=== PATIENT | male | born 1930 | race Caucasian/White ===

== ENCOUNTER 2017-02-17 15:43 | Emergency (ER) | payer MEDICARE ==
[2017-02-17] MEDS ORDERED: BACTRIM DS1 TAB PO (16:41)
[2017-02-17 16:46] VITALS: BP 125/71
[2017-02-17] MEDS ORDERED: EC ASPIRIN325 MG PO (16:59)
[2017-02-17] MEDS ORDERED: FLUTICASONE50 MCG (16:59)
[2017-02-17] MEDS ORDERED: LOMOTIL2.5 MG PO (17:00)
[2017-02-17] MEDS ORDERED: ALLEGRA180 MG PO (17:00)
[2017-02-17] MEDS ORDERED: OMEPRAZOLE10 MG PO (17:01)
[2017-02-17] MEDS ORDERED: LUPRON DEPOT11.25 MG IM (17:02)
[2017-02-17] MEDS ORDERED: BICALUTAMIDE50 MG PO (17:03)
[2017-02-17] MEDS ORDERED: PRAVASTATIN SOD20 MG PO (17:03)
[2017-02-17] MEDS ORDERED: LEVOTHYROXIN50 MCG PO (17:03)
[2017-02-17] MEDS ORDERED: LEXAPRO10 MG PO (17:04)
== END 2017-02-17 16:52 | disposition home or self-care (01) ==
LOC: ED 15:43
DX: J02.9 Acute pharyngitis, unspecified (principal); R59.0 Localized enlarged lymph nodes; R91.1 Solitary pulmonary nodule

== ENCOUNTER 2017-12-16 10:56 | Day surgery (SDC) | payer MEDICARE ==
[~2017-12-16] VITALS: Ht 170.2 cm; Wt 70.8 kg
[~2017-12-16 10:56] MED LIST: ALLEGRA180 MG PO; ASPIRIN LOW DOS81 M1 PO; BACTRIM DS1 TAB PO; BICALUTAMIDE50 MG PO; CHOND PO; D3 MAXIMUM5000 UNI1 PO; EC ASPIRIN325 MG PO; FISH OIL306 MG PO; FLUTICASONE50 MCG; FOLIC ACID800 MCG PO; GLUCOS PO; ICAPS PO; LEVOTHYROXIN50 MCG PO; LEXAPRO10 MG PO; LOMOTIL2.5 MG PO; LUPRON DEPOT11.25 MG IM; MONTELUKAST SOD10 MG PO; OMEPRAZOLE10 MG PO; OSCAL 500/1 TAB PO; POTASSIUM99 MG PO; PRAVASTATIN SOD20 MG PO; QUNOL COQ10/UB100 MG PO; [UNRECOGNIZED DRUG - OTHER] PO
[2017-12-16 13:59] VITALS: BP 152/72
== END 2017-12-16 14:18 | disposition home or self-care (01) ==
LOC: ENDO 10:56 → ORM 18:00 → ENDO 18:00
PROVIDERS: ATTEND Internal Medicine Gastroenterology
PROC: 0DB48ZX Excision of Esophagogastric Junction, Via Natural or Artificial Opening Endoscopic, Diagnostic (ICD-10-PCS; principal; 2017-12-16)
DX: R93.8 Abnormal findings on diagnostic imaging of other specified body structures (principal); K22.2 Esophageal obstruction; K29.50 Unspecified chronic gastritis without bleeding; K44.9 Diaphragmatic hernia without obstruction or gangrene; E78.00 Pure hypercholesterolemia, unspecified; K80.20 Calculus of gallbladder without cholecystitis without obstruction; K57.10 Diverticulosis of small intestine without perforation or abscess without bleeding

== ENCOUNTER 2018-09-21 16:55 | Emergency (ER) | payer MEDICARE ==
[~2018-09-21] VITALS: Ht 170.2 cm; Wt 70.5 kg
[2018-09-21 18:04] LABS: HEMATOCRIT 37.6 % (39.0-50.0); HEMOGLOBIN 12.2 g/dl (14.0-18.0); IMMATURE GRANULOCYTES 0.1 % (0.0-5.0); MEAN CELL VOLUME 96.7 fL CALC (80.0-100.0); MEAN CORPUSCULAR HGB 31.4 pG CALC (26.0-32.0); MEAN CORPUSCULAR HGB CONC 32.4 g/L CALC (32.0-36.0); NEUT# 4.3 thou/uL (1.82-7.42); RED BLOOD COUNT 3.89 mill/uL (4.70-6.10); RED CELL DISTRI WIDTH 12.8 % (11.5-15.5)
[2018-09-21 18:24] LABS: ACT PARTIAL THROMBO TIME 27.3 SECONDS (20.0-32.5); ALBUMIN 4.1 g/dL (3.2-5.0); ALKALINE PHOSPHATASE 64 u/l (38-126); ANION GAP 13 (6-22 (CALC)); BILIRUBIN, TOTAL 0.7 mg/dL (0.0-1.4); BUN 31 mg/dL (8-23); BUN/CREATININE RATIO 29 (12-20 (CALC)); CARBON DIOXIDE 26 mmol/l (22-30); CHLORIDE 106 mmol/l (95-108); CREATININE 1.1 mg/dL (0.7-1.3); GFR > 60 ML/MIN (>=60 (CALC)); GFR FOR AFR.AMER. > 60 ML/MIN (>=60 (CALC)); LIPASE 217 u/l (23-300); POTASSIUM 4.4 mmol/l (3.5-5.1); PROTHROMBIN TIME 10.6 SECONDS (9.0-12.5); SGOT/AST 22 u/l (19-48); SODIUM 141 mmol/l (137-146); TOTAL PROTEIN 6.9 g/dL (6.3-8.2)
[2018-09-21 20:58] LABS: IMMATURE GRANULOCYTES 0.4 % (0.0-5.0); MEAN CELL VOLUME 95.9 fL CALC (80.0-100.0); MEAN CORPUSCULAR HGB 31.7 pG CALC (26.0-32.0); MEAN CORPUSCULAR HGB CONC 33.1 g/L CALC (32.0-36.0); NEUT# 3.01 thou/uL (1.82-7.42); RED BLOOD COUNT 3.15 mill/uL (4.70-6.10); RED CELL DISTRI WIDTH 12.9 % (11.5-15.5)
[2018-09-21 21:01] LABS: HEMATOCRIT 30.2 % (39.0-50.0)
[2018-09-21 22:55] VITALS: BP 117/70
== END 2018-09-21 22:55 | disposition short-term general hospital (02) ==
LOC: ED 16:55
PROVIDERS: Emergency Medicine
DX: K92.2 Gastrointestinal hemorrhage, unspecified (principal); N20.0 Calculus of kidney; K57.32 Diverticulitis of large intestine without perforation or abscess without bleeding; R39.15 Urgency of urination; K44.9 Diaphragmatic hernia without obstruction or gangrene
CPT/HCPCS: Q9967; S0164